=== PATIENT | female | born 1965 | race African-American/Black ===

== ENCOUNTER 2018-08-27 14:06 | Emergency (ER) | payer MEDICAID ==
[~2018-08-27] VITALS: Ht 154.9 cm; Wt 88.0 kg
--- NOTE | 2018-08-27 14:28 | Emergency Room Report ---
History of Present Illness General Chief Complaint: Flu Like Symptoms Source: Patient Present Illness [facility] The patient presents with 2 weeks of upper respiratory symptomatology. Last week she had fever sore throat and cough. She was treated with a Z-Prince and prednisone. She's used an inhaler before but denies asthma and is not using one now. She is not exposed to cigarette smoke. 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 She denies vomiting or diarrhea. The cough is been so severe that she's been incontinent of urine and also has a headache afterwards. She's not producing yellow or green phlegm at this time. She did not get a influenza vaccination. No abdominal pain, rashes, joint pain, muscle pain, neck stiffness. Allergies: Coded Allergies: No Known Allergies (Unverified , 08/27/18) Patient History Past Medical History: see triage record Social History: Denies: smoking Social History Narrative works at [employer] Last Menstrual Period: 2014 Now: No : 3 Para: 3 Reviewed Nursing Documentation: PMH: Agreed; PSxH: Agreed Nursing Documentation-PMH Hx Cardiac Problems: Yes Review of Systems All Other Systems: negative except mentioned in HPI Physical Exam Vital Signs Date Time Temp Pulse Resp B/P (MAP) Pulse Ox O2 Delivery O2 Flow Rate FiO2 08/27/18 14:15 98.1 77 18 115/64 96 Room Air Sp02 EP Interpretation: reviewed, normal General Appearance: well appearing, no apparent distress, GCS 15 Head: normocephalic Eyes: bilateral eye normal inspection, bilateral eye PERRL ENT: normal pharynx, no angioedema, normal voice, moist mucus membranes Neck: full range of motion, supple Respiratory: lungs clear, normal breath sounds, other - post tussive wheezes = minimal Cardiovascular #1: regular rate, rhythm, no edema Cardiovascular #2: 2+ radial (R) Gastrointestinal: normal inspection, normal bowel sounds, non tender, no mass, non-distended, overweight Musculoskeletal: back normal, gait/station normal, normal range of motion, no calf tenderness, Live's Sign negative Neurologic: alert, oriented x3, grossly normal Psychiatric: mood/affect normal Skin: normal inspection, warm/dry Medical Decision Making Diagnostic Impression: Primary Impression: Upper respiratory infection Qualified Codes: J06.9 - Acute upper respiratory infection, unspecified Additional Impression: Bronchospasm ER Course Patient presents with continued cough after treatment with prednisone and a Z- Prince. Differential includes bronchospasm, bronchitis, pneumonia, viral syndrome amongst others. Patient will be evaluated with EKG chest x-ray and influenza swab. She'll be treated with albuterol and Atrovent. Doubt PE based on exam and VS. CXR negative. Flu neg. Improved with treatment. Discussed treatment plan. Patient stable for outpatient observation and treatment. Influenza neg EKG Diagnostic Results Rate: normal Rhythm: NSR ST Segments: no acute changes Rhythm Strip Diag. Results EP Interpretation: yes Rhythm: NSR, no PVC's, no ectopy Chest X-Ray Diagnostic Results Chest X-Ray Diagnostic Results : Chest X-Ray Ordered: Yes # of Views/Limited/Complete: 1 View Indication: Other EP Interpretation: Yes Interpretation: no consolidation, no effusion, no pneumothorax Impression: No acute disease Electronically Signed by: Electronically signed by Quinton Rm MD Last Vital Signs Date Time Temp Pulse Resp B/P (MAP) Pulse Ox O2 Delivery O2 Flow Rate FiO2 08/27/18 16:00 98.1 72 16 139/69 100 Room Air 21 Status: improved Disposition: HOME, SELF-CARE Condition: Improved Scripts Guaifenesin/Codeine Phos* (ROBITUSSIN AC*) 118 Ml Liquid 5 ML ORAL Q6H PRN for For Cough, #90 ML 0 Refills Prov: Quinton Rm MD 08/27/18 Albuterol Sulfate* (ALBUTEROL SULFATE MDI*) 8.5 Gm Hfa.aer.ad 2 PUFF INH Q6H, #1 EA 0 Refills Prov: Quinton Rm MD 08/27/18 Quinton Rm MD Aug 27, 2018 14:28
[2018-08-27] MEDS ORDERED: Albuterol ud Inhalation HHN ONE (14:30)
[2018-08-27] MEDS ORDERED: Ipratropium 0.02% Inh Soln 2.5ml UD HHN ONE (14:30)
[2018-08-27 14:35] VITALS: BP 139/69
--- NOTE | 2018-08-27 15:12 | Diagnostic Imaging Report ---
EXAM: XR Chest, 1 View CLINICAL HISTORY: COUGH TECHNIQUE: Frontal view of the chest. COMPARISON: No relevant prior studies available. FINDINGS: Lungs: Unremarkable. No consolidation. Pleural space: Unremarkable. No pneumothorax. Heart: Prominent cardiac silhouette, likely projectional. Mediastinum: Unremarkable. Bones/joints: Unremarkable. IMPRESSION: No acute findings.
[2018-08-27] MEDS ORDERED: GUAIFENESIN-CO118 M1 ORAL (15:46)
[2018-08-27] MEDS ORDERED: ALBUTEROL SULF8.5 GM INH (15:46)
[2018-08-27 16:00] VITALS: BP 139/69
== END 2018-08-27 15:54 | disposition home or self-care (01) ==
LOC: EMR 15:12
DX: J06.9 Acute upper respiratory infection, unspecified (principal); J98.01 Acute bronchospasm
CPT/HCPCS: 71045; 86710; 93005; 94640; 94664; 99284